=== PATIENT | female | born 1955 | race Caucasian/White ===

== ENCOUNTER 2021-10-20 20:22 | Observation (INO) ==
[2021-10-20] MEDS ORDERED: ONDANSETRON INJ 2 MG/ML 2 ML VIAL IV STA (21:09)
[2021-10-20] MEDS ORDERED: MoRPHine SULFATE 4 MG/ML 1 ML CARP\\VIAL IV STA (21:09)
[2021-10-20] MEDS ORDERED: SODIUM CHLORIDE 0.9% 500 ML IV STA (21:09)
[2021-10-20] MEDS ORDERED: HYDROmorphone INJ 0.5 MG/0.5 ML SYR IV STA (21:28)
[2021-10-20] MEDS ORDERED: LABETALOL HCL IV 5 MG/ML 20ML IV STA (21:28)
--- NOTE | 2021-10-20 21:32 | Emergency Department Note ---
Impression & Plan Chest pain ADMIT ED Provider Note HPI: The patient is a 66-year-old female who presents the emergency department with chief complaint of mid abdominal pain. Patient states that she has had issues with abdominal pain throughout the day today although this just became rel atively severe over the past several hours. She complains of pain over the epigastric region and mid abdomen. Patient states she has had several episodes of vomiting. On arrival to the ED the patient is hypertensive, she is in no acute distress on my initial evaluation. She is saturating well on room air. ROS: -GI: Abdominal pain *10 point review systems was conducted and is otherwise negative unless stated above *Outpatient medications and allergy history reviewed PE: General: Alert, NAD HEENT: Normocephalic, atraumatic Eyes: Extraocular eye movement is intact, no scleral erythema Pulmonary: Clear to auscultation bilaterally, no wheezing Cardio: Regular rate and rhythm GI: Abdomen is soft, moderate pain over the mid abdomen to palpation without guarding or rigidity : No suprapubic tenderness MSK: No evidence of trauma or malformation of the extremities, no edema Skin: No evidence of rash Neuro: Alert, no focal deficits Psychiatric: Cooperative lawyer real estate: - An order was placed for continuous cardiac monitoring - Patient was noted to be in sinus rhythm with rate of 63 EKG: Rate: 48 Rhythm: Sinus bradycardia Intervals: Within normal limits Time: 2135 ST changes: No ST elevation Medical Decision Making: Patient presented to the emergency department the chief complaint of abdominal pain, on my initial assessment the patient was having some moderate discomfort however shortly thereafter on reassessment she began to develop some very intense pain that was causing her to be writhing in the bed, at this point I did have concern for aortic dissection therefore I contacted CT and placed orders for CT angiography of the chest as well as of the abdomen pelvis. These were performed and show no evidence of aortic dissection, no evidence of bowel obs truction, no evidence of any acute surgical pathology. Patient's lab work is generally unremarkable, troponin is negative x1, I do not see any acute ischemic changes on her EKG. Lipase is within normal limits. Patient was given IV morphine, IV Zofran, IV fluids, IV Dilaudid. My reassessment she is resting comfortably and states that her pain is "much improved". Patient's pain has been epigastric in nature and somewhat substernal in nature in the lower portion of the chest. She does have multiple risk factors for ACS including hypertension, hyperlipidemia, age, and strong family history. Discussed all the above findings with the patient and her at the bedside who is a physician, they state their preference for admission for ACS rule out which I believe is reasonable. I discussed all the above with the on-call hospitalist for [facility], Dr. Li, and the patient was admitted in stable condition for further care. Diagnosis: 1. Nonspecific chest pain 2. Abdominal pain 3. Nausea and vomiting Disposition: Admission Emile Preciado DO Emergency Medicine Past Med/Surg History Medical History (Updated 10/20/21 @ 23:49 by Emile Preciado DO) Brain tumor High cholesterol Hypothyroidism Surgical History (Updated 07/25/21 @ 08:37 by Debi Sultana LPN) H/O bilateral breast reduction surgery H/O craniotomy H/O hand surgery H/O laparoscopy H/O thyroidectomy H/O: hysterectomy History of laparotomy Hx of appendectomy Family History (Updated 07/25/21 @ 08:38 by Debi Sultana LPN) Mother Myocardial infarction Denies family history of Ovarian cancer Prostate cancer Breast cancer Colorectal cancer Social History (Updated 07/25/21 @ 08:40 by Debi Sultana LPN) Smoking Status: Never smoker Second Hand Exposure: Yes; Hx Alcohol Use: Yes Hx Substance Use: No Preferred Language: Serbian marital status: Current Living Situation: Spouse current occupational status: employed How many Children do You have: 0 Feels Safe at Home: Yes Childhood Exposure to Second-Hand Smoke: Yes caffeine: Yes Dental Care, Regularly: Yes Physical Activity Frequency: 3-4 Times per Week Seatbelt Use: always Sunscreen Use: Yes Allergies Allergies Allergy/AdvReac Type Severity Reaction Status Date / Time Sulfa (Sulfonamide Allergy Verified 08/30/21 10:27 Antibiotics) Home Meds Home Medications Medication Instructions Recorded Confirmed levothyroxine 125 mcg tablet 125 mcg PO DAILY 07/25/21 08/30/21 (Synthroid) rabeprazole [AcipHex] PO 07/25/21 08/30/21 rosuvastatin 10 mg tablet (Crestor) 10 mg PO DAILY 07/25/21 08/30/21 trazodone 50 mg tablet 50 mg PO DAILY 07/25/21 08/30/21 Previous Rx's Medication Instructions Recorded clobetasol 0.05 % topical cream 1 applic TOPICAL DAILY #30 g 07/25/21 Results & Data (ED) Vital Signs Vital Signs - 24 hr 10/20/21 20:32 10/20/21 22:17 Temperature 36.0 C L Temperature Source Temporal Artery Scan Pulse Rate 74 Respiratory Rate 18 Blood Pressure 168/113 H Blood Pressure Mean 131 Blood Pressure Position Sitting Pulse Oximetry 97 92 Oxygen Delivery Method Room Air Room Air Sepsis Recent Fever Within 48 Hours No Sepsis New/Unexplained Change in Mental Status N/A Sepsis Action Taken by Nursing No Action Required Laboratory Data Result diagrams: 10/20/21 21:23 10/20/21 21:23 Lab Results 10/20/21 10/20/21 10/20/21 Range/Units 21:23 21:23 22:28 WBC 9.15 (4.8-10.8) K/uL RBC 4.56 (4.2-5.4) M/uL Hgb 14.1 (12.0-16.0) g/dL Hct 42.2 (37-47) % MCV 92.5 (80-100) fL MCH 30.9 (25-34) pg MCHC 33.4 (32-36) g/dL RDW Std Deviation 47.7 H (36.4-46.3) fL RDW Coeff of Corrina 14.1 (11.5-14.5) % Plt Count 296 (130-400) K/uL MPV 9.9 (7.4-10.4) fL Immature Gran % (Auto) 0.2 % Neut % (Auto) 75.1 % Lymph % (Auto) 17.8 % [place] % (Auto) 6.4 % Eos % (Auto) 0.3 % Baso % (Auto) 0.2 % Neut # (Auto) 6.86 H (1.4-6.5) K/uL Lymph # (Auto) 1.63 (1.2-3.4) K/uL [place] # (Auto) 0.59 (0.11-0.59) K/uL Eos # (Auto) 0.03 (0-0.5) K/uL Baso # (Auto) 0.02 (0-0.2) K/uL Immature Gran # (Auto) 0.02 (0.00-0.02) K/uL Sodium 139 (136-145) mmol/L Potassium 3.7 (3.5-5.1) mmol/L Chloride 103 (98-107) mmol/L Carbon Dioxide 26 (21-32) mmol/L Anion Gap 10 (3-11) BUN 15 (6-23) mg/dl Creatinine 0.73 (0.6-1.2) mg/dl Est Cr Clr Drug Dosing 68.8 ml/min Est GFR ( Amer) 100.9 ml/min Est GFR (Non-Af Amer) 87.0 ml/min BUN/Creatinine Ratio 20.5 H (10-20) Glucose 105 H (70-99(Fasting)) mg/dl Calcium 9.6 (8.5-10.1) mg/dl Total Bilirubin 0.4 (0.2-1.0) mg/dl AST 17 (13-39) U/L ALT 21 (7-52) U/L Alkaline Phosphatase 84 (34-104) U/L Troponin I < 0.03 (0-0.04) ng/ml Total Protein 6.9 (6.0-8.3) gm/dl Albumin 4.5 (3.4-5.0) gm/dl Globulin 2.4 L (2.5-4.0) gm/dl Albumin/Globulin Ratio 1.9 (0.9-2) Lipase 28 (11-82) U/L Urine Color Yellow Urine Appearance Clear (Clear) Urine pH 7.5 (4.5-7.5) Ur Specific [place] 1.029 (1.000-1.030) Urine Protein Negative (Negative) Urine Glucose (UA) Negative (Negative) Urine Ketones Negative (Negative) Urine Blood Negative (Negative) Urine Nitrite Negative (Negative) Urine Bilirubin Negative (Negative) Urine Urobilinogen Negative (Negative) Ur Leukocyte Esterase Negative (Negative) SARS-CoV-2, RNA, NAAT (NEGATIVE) 10/20/21 Range/Units 22:46 WBC (4.8-10.8) K/uL RBC (4.2-5.4) M/uL Hgb (12.0-16.0) g/dL Hct (37-47) % MCV (80-100) fL MCH (25-34) pg MCHC (32-36) g/dL RDW Std Deviation (36.4-46.3) fL RDW Coeff of Corrina (11.5-14.5) % Plt Count (130-400) K/uL MPV (7.4-10.4) fL Immature Gran % (Auto) % Neut % (Auto) % Lymph % (Auto) % [place] % (Auto) % Eos % (Auto) % Baso % (Auto) % Neut # (Auto) (1.4-6.5) K/uL Lymph # (Auto) (1.2-3.4) K/uL [place] # (Auto) (0.11-0.59) K/uL Eos # (Auto) (0-0.5) K/uL Baso # (Auto) (0-0.2) K/uL Immature Gran # (Auto) (0.00-0.02) K/uL Sodium (136-145) mmol/L Potassium (3.5-5.1) mmol/L Chloride (98-107) mmol/L Carbon Dioxide (21-32) mmol/L Anion Gap (3-11) BUN (6-23) mg/dl Creatinine (0.6-1.2) mg/dl Est Cr Clr Drug Dosing ml/min Est GFR ( Amer) ml/min Est GFR (Non-Af Amer) ml/min BUN/Creatinine Ratio (10-20) Glucose (70-99(Fasting)) mg/dl Calcium (8.5-10.1) mg/dl Total Bilirubin (0.2-1.0) mg/dl AST (13-39) U/L ALT (7-52) U/L Alkaline Phosphatase (34-104) U/L Troponin I (0-0.04) ng/ml Total Protein (6.0-8.3) gm/dl Albumin (3.4-5.0) gm/dl Globulin (2.5-4.0) gm/dl Albumin/Globulin Ratio (0.9-2) Lipase (11-82) U/L Urine Color Urine Appearance (Clear) Urine pH (4.5-7.5) Ur Specific [place] (1.000-1.030) Urine Protein (Negative) Urine Glucose (UA) (Negative) Urine Ketones (Negative) Urine Blood (Negative) Urine Nitrite (Negative) Urine Bilirubin (Negative) Urine Urobilinogen (Negative) Ur Leukocyte Esterase (Negative) SARS-CoV-2, RNA, NAAT NEGATIVE (NEGATIVE) Administered Medications Discontinued Medications Hydromorphone HCl (Hydromorphone Inj 0.5 Mg/0.5 Ml Syr) 0.5 mg IV NOW STA Stop: 10/20/21 21:29 Last Admin: 10/20/21 21:44 Dose: 0.5 mg Documented by: [id number] Sodium Chloride (Nss) 500 mls @ 999 mls/hr IV .Q31M STA Stop: 10/20/21 21:39 Last Infusion: 10/20/21 22:45 Dose: 0 mls/hr Documented by: [id number] Admin: 10/20/21 21:44 Dose: 999 mls/hr Documented by: [id number] Ioversol (Optiray 320 125ml) 118 ml IV ONCE ONE Stop: 10/20/21 21:50 Last Admin: 10/20/21 21:52 Dose: 118 ml Documented by: [id number] Labetalol HCl (Labetalol Hcl Iv 5 Mg/Ml 20ml) 10 mg IV NOW STA Stop: 10/20/21 21:29 Last Admin: 10/20/21 22:08 Dose: 10 mg Documented by: [id number] Cosigned by: [id number] Morphine Sulfate (Morphine Sulfate 4 Mg/Ml 1 Ml Carp\\Vial) 4 mg IV NOW STA Stop: 10/20/21 21:10 Last Admin: 10/20/21 21:44 Dose: 4 mg Documented by: [id number] Ondansetron HCl (Ondansetron Inj 2 Mg/Ml 2 Ml Vial) 4 mg IV NOW STA Stop: 10/20/21 21:10 Last Admin: 10/20/21 21:44 Dose: 4 mg Documented by: [id number] Imaging Data Radiologist's Impression: Abdomen/Pelvis CTA 10/20/21 21:27 CHEST CTA for AORTIC DISSECTION, ABDOMEN AND PELVIS CTA CT DOSE: 865.17 mGy.cm HISTORY: ripping chest pain. Generalized abdominal pain. Lower abdominal pain. Vomiting. Assess for an aortic dissection. TECHNIQUE: Multiaxial CT images of the chest, abdomen, and pelvis were performed both before and after the intravenous administration of contrast to evaluate the aorta. Maximal intensity projection images were also obtained. A dose lowering technique was utilized adhering to the principles of ALARA. COMPARISON STUDY: None. FINDINGS: Chest CTA: Noncontrast imaging through the chest shows no evidence for an intramural hematoma within the thoracic aorta. Mild calcified plaque within the normal caliber thoracic aorta. The heart is mildly enlarged. No pleural or pericardial effusions. No evidence for an aortic dissection. The central pulmonary arteries are patent. Mild calcified plaque within the coronary arteries. Normal caliber esophagus. No mediastinal or hilar lymphadenopathy. No fractures within the visualized osseous structures. No pneumothorax. The central airways are patent. Mild dependent changes seen at the lung bases. Otherwise, no focal lung consolidations to suggest pneumonia. Abdomen/pelvis CTA: No pneumoperitoneum. No pneumatosis. No fractures within the visualized osseous structures. There is no for vertebral body hemangioma. The gallbladder, spleen, adrenal glands, pancreas, and right kidney are unremarkable. There is a 1.2 cm hypodense lesion within the left kidney. This favors a cyst. No hydronephrosis. No retroperitoneal lymphadenopathy. Moderate calcified plaque within the normal caliber abdominal aorta. No evidence for an aortic dissection. The celiac, superior mesenteric, renal, inferior mesenteric, and common iliac arteries are patent. The bilateral external iliac arteries are also patent. Normal bladder. Prior hysterectomy. No pelvic free fluid or pelvic lymphadenopathy. Colonic diverticulosis. No evidence for acute diverticulitis. No bowel wall thickening or obstruction. The appendix is surgically absent. Atrophic left hepatic lobe. There is a 1 cm hypodense lesion within the posterior segment of the right hepatic lobe. This is difficult to characterize on this study but favors a cyst. 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 There is an indeterminate 1 cm nodule within the mid mesentery on image 172.. IMPRESSION: 1. No evidence for an aortic dissection. 2. The central pulmonary arteries appear patent. 3. No focal lung consolidations to suggest pneumonia. 4. No bowel wall thickening or obstruction. 5. Colonic diverticulosis. No evidence for acute diverticulitis. 6. Prior appendectomy. 7. 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 8. There is an indeterminate 1 cm nodule within the mid mesentery. This could represent a lymph node or small bowel diverticulum. 6 month abdomen and pelvis CT follow-up with intravenous and oral contrast is recommended to ensure stability. 9. Additional findings as described above. ACT 112: Positive. There are findings on this exam that require communication between the performing entity and the patient following Patient Test Result Information Act ([place] Act 112) guidelines. Electronically signed by: Radames Kaye M.D. 10/20/2021 10:18 PM Chest CTA 10/20/21 21:27 CHEST CTA for AORTIC DISSECTION, ABDOMEN AND PELVIS CTA CT DOSE: 865.17 mGy.cm HISTORY: ripping chest pain. Generalized abdominal pain. Lower abdominal pain. Vomiting. Assess for an aortic dissection. TECHNIQUE: Multiaxial CT images of the chest, abdomen, and pelvis were performed both before and after the intravenous administration of contrast to evaluate the aorta. Maximal intensity projection images were also obtained. A dose lowering technique was utilized adhering to the principles of ALARA. COMPARISON STUDY: None. FINDINGS: Chest CTA: Noncontrast imaging through the chest shows no evidence for an intramural hematoma within the thoracic aorta. Mild calcified plaque within the normal caliber thoracic aorta. The heart is mildly enlarged. No pleural or pericardial effusions. No evidence for an aortic dissection. The central pulmonary arteries are patent. Mild calcified plaque within the coronary arteries. Normal caliber esophagus. No mediastinal or hilar lymphadenopathy. No fractures within the visualized osseous structures. No pneumothorax. The central airways are patent. Mild dependent changes seen at the lung bases. Otherwise, no focal lung consolidations to suggest pneumonia. Abdomen/pelvis CTA: No pneumoperitoneum. No pneumatosis. No fractures within the visualized osseous structures. There is no for vertebral body hemangioma. The gallbladder, spleen, adrenal glands, pancreas, and right kidney are unremarkable. There is a 1.2 cm hypodense lesion within the left kidney. This favors a cyst. No hydronephrosis. No retroperitoneal lymphadenopathy. Moderate calcified plaque within the normal caliber abdominal aorta. No evidence for an aortic dissection. The celiac, superior mesenteric, renal, inferior mesenteric, and common iliac arteries are patent. The bilateral external iliac arteries are also patent. Normal bladder. Prior hysterectomy. No pelvic free fluid or pelvic lymphadenopathy. Colonic diverticulosis. No evidence for acute diverticulitis. No bowel wall thickening or obstruction. The appendix is surgically absent. Atrophic left hepatic lobe. There is a 1 cm hypodense lesion within the posterior segment of the right hepatic lobe. This is difficult to characterize on this study but favors a cyst. 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 There is an indeterminate 1 cm nodule within the mid mesentery on image 172.. IMPRESSION: 1. No evidence for an aortic dissection. 2. The central pulmonary arteries appear patent. 3. No focal lung consolidations to suggest pneumonia. 4. No bowel wall thickening or obstruction. 5. Colonic diverticulosis. No evidence for acute diverticulitis. 6. Prior appendectomy. 7. 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 8. There is an indeterminate 1 cm nodule within the mid mesentery. This could represent a lymph node or small bowel diverticulum. 6 month abdomen and pelvis CT follow-up with intravenous and oral contrast is recommended to ensure stability. 9. Additional findings as described above. ACT 112: Positive. There are findings on this exam that require communication between the performing entity and the patient following Patient Test Result Information Act ([place] Act 112) guidelines. Electronically signed by: Radames Kaye M.D. 10/20/2021 10:18 PM Discharge Plan Visit Data Chief Complaint: GI Assessment Stated Complaint: ABD PAIN,NAUSEA ED Provider: Emile Preciado Discharge Problem: Chest pain Forms Stand Alone Forms: [employer] Prescriptions Prescriptions: No Action levothyroxine [Synthroid] 125 mcg tablet 125 mcg PO DAILY RF: 0 trazodone 50 mg tablet 50 mg PO DAILY RF: 0 rosuvastatin [Crestor] 10 mg tablet 10 mg PO DAILY RF: 0 rabeprazole [AcipHex] PO RF: 0 clobetasol 0.05 % cream 1 applic topical DAILY Qty: 30 RF: 3 Referrals Referrals: Shawn Puente MD [Primary Care Provider] - Discharge Problem: Chest pain Qualifiers: Chest pain type: unspecified Qualified Code(s): R07.9 - Chest pain, unspecified
[2021-10-20 21:37] LABS: Basophils # (auto) 0.02 K/uL (0-0.2); Basophils % (auto) 0.2 %; Eosinophils # (auto) 0.03 K/uL (0-0.5); Eosinophils % (auto) 0.3 %; Hematocrit (blood only) 42.2 % (37-47); Hemoglobin 14.1 g/dL (12.0-16.0); Immature Granulocytes # (auto) 0.02 K/uL (0.00-0.02); Immature Granulocytes % (auto) 0.2 %; Lymphocytes # (auto) 1.63 K/uL (1.2-3.4); Lymphocytes % (auto) 17.8 %; Mean Corpuscular Hemoglobin 30.9 pg (25-34); Mean Corpuscular Hgb Conc 33.4 g/dL (32-36); Mean Corpuscular Volume 92.5 fL (80-100); Mean Platelet Volume 9.9 fL (7.4-10.4); Monocytes # (auto) 0.59 K/uL (0.11-0.59); Monocytes % (auto) 6.4 %; Neutrophils # (auto) 6.86 K/uL (1.4-6.5); Neutrophils % (auto) 75.1 %; Platelet Count 296 K/uL (130-400); RDW Coefficient of Variation 14.1 % (11.5-14.5); RDW Standard Deviation 47.7 fL (36.4-46.3); Red Blood Count 4.56 M/uL (4.2-5.4); White Blood Count 9.15 K/uL (4.8-10.8)
[2021-10-20] MEDS ORDERED: OPTIRAY 320 125ml IV ONE (21:49)
[2021-10-20 21:59] LABS: Alanine Aminotransferase 21 U/L (7-52); Albumin Globulin Ratio 1.9 (0.9-2); Albumin Level 4.5 gm/dl (3.4-5.0); Alkaline Phosphatase 84 U/L (34-104); Anion Gap 10 (3-11); Aspartate Aminotransferase 17 U/L (13-39); BUN Creatinine Ratio 20.5 (10-20); Bilirubin,Total 0.4 mg/dl (0.2-1.0); Blood Urea Nitrogen 15 mg/dl (6-23); Calcium 9.6 mg/dl (8.5-10.1); Carbon Dioxide 26 mmol/L (21-32); Chloride 103 mmol/L (98-107); Creatinine Clr Calc Pharmacy 68.8 ml/min; Est GFR (African American) 100.9 ml/min; Globulin 2.4 gm/dl (2.5-4.0); Glucose 105 mg/dl (70-99(Fasting)); Lipase 28 U/L (11-82); Potassium 3.7 mmol/L (3.5-5.1); Sodium 139 mmol/L (136-145); Total Protein 6.9 gm/dl (6.0-8.3)
[2021-10-20 22:00] LABS: Troponin I < 0.03 ng/ml (0-0.04)
--- NOTE | 2021-10-20 22:20 | CT Scan Report ---
CHEST CTA for AORTIC DISSECTION, ABDOMEN AND PELVIS CTA CT DOSE: 865.17 mGy.cm HISTORY: ripping chest pain. Generalized abdominal pain. Lower abdominal pain. Vomiting. Assess for a n aortic dissection. TECHNIQUE: Multiaxial CT images of the chest, abdomen, and pelvis were performed both before and afte r the intravenous administration of contrast to evaluate the aorta. Maximal intensity projection imag es were also obtained. A dose lowering technique was utilized adhering to the principles of ALARA. COMPARISON STUDY: None. FINDINGS: Chest CTA: Noncontrast imaging through the chest shows no evidence for an intramural hematoma within the thoracic aorta. Mild calcified plaque within the normal caliber thoracic aorta. The heart is mild ly enlarged. No pleural or pericardial effusions. No evidence for an aortic dissection. The central p ulmonary arteries are patent. Mild calcified plaque within the coronary arteries. Normal caliber esop hagus. No mediastinal or hilar lymphadenopathy. No fractures within the visualized osseous structures . No pneumothorax. The central airways are patent. Mild dependent changes seen at the lung bases. Oth erwise, no focal lung consolidations to suggest pneumonia. Abdomen/pelvis CTA: No pneumoperitoneum. No pneumatosis. No fractures within the visualized osseous s tructures. There is no for vertebral body hemangioma. The gallbladder, spleen, adrenal glands, pancre as, and right kidney are unremarkable. There is a 1.2 cm hypodense lesion within the left kidney. Thi s favors a cyst. No hydronephrosis. No retroperitoneal lymphadenopathy. Moderate calcified plaque wit hin the normal caliber abdominal aorta. No evidence for an aortic dissection. The celiac, superior me senteric, renal, inferior mesenteric, and common iliac arteries are patent. The bilateral external il iac arteries are also patent. Normal bladder. Prior hysterectomy. No pelvic free fluid or pelvic lymp hadenopathy. Colonic diverticulosis. No evidence for acute diverticulitis. No bowel wall thickening o r obstruction. The appendix is surgically absent. Atrophic left hepatic lobe. There is a 1 cm hypoden se lesion within the posterior segment of the right hepatic lobe. This is difficult to characterize o n this study but favors a cyst. 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 me asuring 1.6 cm. There is an indeterminate 1 cm nodule within the mid mesentery on image 172.. IMPRESSION: 1. No evidence for an aortic dissection. 2. The central pulmonary arteries appear patent. 3. No focal lung consolidations to suggest pneumonia. 4. No bowel wall thickening or obstruction. 5. Colonic diverticulosis. No evidence for acute diverticulitis. 6. Prior appendectomy. 7. 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 8. There is an indeterminate 1 cm nodule within the mid mesentery. This could represent a lymph node or small bowel diverticulum. 6 month abdomen and pelvis CT follow-up with intravenous and oral contra st is recommended to ensure stability. 9. Additional findings as described above. ACT 112: Positive. There are findings on this exam that require communication between the performing entity and the patient following Patient Test Result Information Act ([place] Act 112) guidelines. Electronically signed by: Radames Kaye M.D. 10/20/2021 10:18 PM
[2021-10-20 22:59] LABS: Appearance Urine Clear (Clear); Bilirubin Urine Negative (Negative); Blood Urine Negative (Negative); Color Urine Yellow; Glucose Urine UA Negative (Negative); Ketones Urine Negative (Negative); Leukocyte Esterase Urine Negative (Negative); Nitrite Urine Negative (Negative); Protein Urine Negative (Negative); Specific Gravity Urine 1.029 (1.000-1.030); Urobilinogen Urine Negative (Negative); pH Urine 7.5 (4.5-7.5)
[2021-10-21] MEDS ORDERED: MoRPHine SULFATE 4 MG/ML 1 ML CARP\\VIAL ONE (00:54)
[2021-10-21] MEDS ORDERED: MoRPHine SULFATE 4 MG/ML 1 ML CARP\\VIAL IV STA (01:01)
[2021-10-21 01:17] LABS: Partial Thromboplastin Time 25.3 Seconds (21.0-31.0)
[2021-10-21 01:29] LABS: Magnesium 1.8 mg/dl (1.7-2.4); Troponin I < 0.03 ng/ml (0-0.04)
--- NOTE | 2021-10-21 01:33 | History & Physical Report ---
Date of Service October 21, 2021 Assessment & Plan (1) Abdominal pain: Plan: Possible viral gastritis Doubt anginal equivalent given prominent GI complaints Situational hypertension Possible chronic BP elevation given mild cardiomegaly on imaging hx brain hemangioblastoma status post surgery (2019), history pituitary adenoma/cerebral meningioma as per records papillary thyroid cancer status post surgery postsurgical hypothyroidism, euthyroid as of recent outpatient TSH hyperlipidemia on statin Rx hx GERD/microscopic colitis Incidental finding of mesenteric nodule on CT OBS Medical telemetry given BP elevation Supportive management for possible viral GI illness Trend troponin TTE given BP elevation and patient/family concerns about ischemic heart disease with patient strong family history Analgesia Monitor BP, initiate lisinopril if with persistent elevation Outpatient 6 month follow-up imaging for mesenteric nodule as recommended DVT prophylaxis per Lovenox subcu Full code Patient requesting updates from providers. Dr. Aldair Pinto, contact #[phone]. Text document was generated using [employer] voice recognition software. It may contain grammatical or spelling errors. Kindly contact undersigned for clarification of any documentation item in question. History of Present Illness Chief Complaint: Abdominal pain, vomiting Primary Care Provider: Shawn Puente MD History obtained from patient, family, and records. Medical history significant for brain hemangioblastoma status post surgery (2019), history pituitary adenoma/cerebral meningioma as per records, papillary thyroid cancer status post surgery, postsurgical hypothyroidism, hyperlipidemia, GERD, microscopic colitis, mood disorder. 1 day history of mid abdominal pain followed by emesis symptoms. No change in bowel habits. No fever, no chills. No known sick contacts. No chest pain, no S OB. Patient and worried about possible cardiac etiology for GI symptoms given strong family of heart disease. Medical History as above Surgical History : Ex lap, breast reduction surgery, brain tumor removal, thyroidectomy, MARLEE, multiple diagnostic laparoscopies for infertility work-up Family History : Heart disease, lung cancer Personal/Social history : Non-smoker, occasional EtOH intake, [employer] Allergies Allergy/AdvReac Type Severity Reaction Status Date / Time cefoxitin [From Mefoxin] Allergy Rash Unverified 10/21/21 00:08 Sulfa (Sulfonamide Allergy Verified 10/21/21 00:07 Antibiotics) Home Medications Medication Instructions Recorded Confirmed Type trazodone 50 mg tablet 50 mg PO HS 07/25/21 10/20/21 History levothyroxine 125 mcg tablet 125 mcg PO DAILY 10/20/21 10/20/21 History melatonin 10 mg tablet 10 mg PO HS PRN 10/20/21 10/21/21 History rabeprazole 20 mg tablet,delayed 20 mg PO DAILY 10/20/21 10/20/21 History release (AcipHex) acetaminophen 650 mg 1,300 mg PO Q12H PRN 10/21/21 10/21/21 History tablet,extended release biotin 5 mg tablet 0 mg PO DAILY 10/21/21 10/21/21 History budesonide 3 mg 9 mg PO DAILY 10/21/21 10/21/21 History capsule,delayed,extended release calcium carbonate 600 mg-vitamin 1 cap PO QAM 10/21/21 10/21/21 History D3 5 mcg (200 unit) capsule (Calcium 600 + D(3)) cyanocobalamin (vitamin B-12) 5,000 mcg PO DAILY 10/21/21 10/21/21 History 5,000 mcg capsule fluticasone propionate 50 2 spray INTRANASAL DAILY PRN 10/21/21 10/21/21 History mcg/actuation nasal spray,suspension multivitamin 1 tab PO DAILY 10/21/21 10/21/21 History rosuvastatin 5 mg tablet (Crestor) 5 mg PO DAILY 10/21/21 10/21/21 History vit C-vit P-qzvocy-ckez ox-lutein 1 cap PO BID 10/21/21 10/21/21 History 226 mg-200 unit-5 mg-0.8 mg capsule (PreserVision Lutein) Past Med/Surg History Medical History (Updated 10/21/21 @ 04:49 by Ander Kinsey MD) Brain tumor High cholesterol Hypothyroidism Surgical History (Updated 07/25/21 @ 08:37 by Debi Sultana LPN) H/O bilateral breast reduction surgery H/O craniotomy H/O hand surgery H/O laparoscopy H/O thyroidectomy H/O: hysterectomy History of laparotomy Hx of appendectomy Family History (Updated 07/25/21 @ 08:38 by Debi Sultana LPN) Mother Myocardial infarction Denies family history of Ovarian cancer Prostate cancer Breast cancer Colorectal cancer Social History (Updated 07/25/21 @ 08:40 by Debi Sultana LPN) Smoking Status: Never smoker Second Hand Exposure: Yes; Hx Alcohol Use: Yes Hx Substance Use: No Preferred Language: Slovak marital status: Current Living Situation: Spouse current occupational status: employed How many Children do You have: 0 Feels Safe at Home: Yes Childhood Exposure to Second-Hand Smoke: Yes caffeine: Yes Dental Care, Regularly: Yes Physical Activity Frequency: 3-4 Times per Week Seatbelt Use: always Sunscreen Use: Yes Review of Systems Review of Systems: As per HPI, all 10 systems reviewed, all other ROS negative Physical Exam Physical Exam: GENERAL: Slightly uncomfortable, pleasant, no respiratory distress SKIN: Normal color, warm HEENT: Bespectacled, [place] palpebral conjunctivae, no ptosis, dry buccal mucosa NECK : Supple, no tenderness CHEST : CTA, no tenderness HEART : RRR, no obvious murmurs ABDOMEN: Some distention, nontender EXTREMITIES : No LE swelling/tenderness, no other conspicuous deformities noted NEUROLOGIC : Coherent, no facial asymmetry, no other gross focality Results & Data Results & Data ([facility]) Vital Signs (Past 12 Hours) Vital Signs Temp Pulse Pulse Resp BP BP Pulse Ox 10/21/21 00:20 61 18 166/92 H 97 10/20/21 22:17 92 10/20/21 20:32 36.0 C L 74 18 168/113 H 97 Laboratory Results Laboratory Results WBC 9.15 K/uL (4.8-10.8) 10/20/21 21: RBC 4.56 M/uL (4.2-5.4) 10/20/21 21: Hgb 14.1 g/dL (12.0-16.0) 10/20/21 21: Hct 42.2 % (37-47) 10/20/21 21: MCV 92.5 fL (80-100) 10/20/21 21: MCH 30.9 pg (25-34) 10/20/21 21: MCHC 33.4 g/dL (32-36) 10/20/21: RDW Std Deviation 47.7 fL (36.4-46.3) H 10/20/21 21: RDW Coeff of [place]rina 14.1 % (11.5-14.5) 10/20/21 21: Plt Count 296 K/uL (130-400) 10/20/21: MPV 9.9 fL (7.4-10.4) 10/20/21: Immature Gran % (Auto) 0.2 % 10/20/21: Neut % (Auto) 75.1 % 10/20/21: Lymph % (Auto) 17.8 % 10/20/21: [place] % (Auto) 6.4 % 10/20/21: Eos % (Auto) 0.3 % 10/20/21: Baso % (Auto) 0.2 % 10/20/21: Neut # (Auto) 6.86 K/uL (1.4-6.5) H 10/20/21: Lymph # (Auto) 1.63 K/uL (1.2-3.4) 10/20/21: [place] # (Auto) 0.59 K/uL (0.11-0.59) 10/20/21: Eos # (Auto) 0.03 K/uL (0-0.5) 10/20/21: Baso # (Auto) 0.02 K/uL (0-0.2) 10/20/21: Immature Gran # (Auto) 0.02 K/uL (0.00-0.02) 10/20/21 APTT 25.3 Seconds (21.0-31.0) 10/21/21 00:50 PTT Ratio 1.0 10/21/21 00:50 Sodium 139 mmol/L (136-145) 10/20/21: Potassium 3.7 mmol/L (3.5-5.1) 10/20/21: Chloride 103 mmol/L (98-107) 10/20/21: Carbon Dioxide 26 mmol/L (21-32) 10/20/21: Anion Gap 10 (3-11) 10/20/21: BUN 15 mg/dl (6-23) 10/20/21: Creatinine 0.73 mg/dl (0.6-1.2) 10/20/21: Est Cr Clr Drug Dosing 68.8 ml/min 10/20/21: Est GFR ( Amer) 100.9 ml/min 10/20/21 21: Est GFR (Non-Af Amer) 87.0 ml/min 10/20/21 21: BUN/Creatinine Ratio 20.5 (10-20) H 10/20/21 21: Glucose 105 mg/dl (70-99(Fasting)) H 10/20/21 21: Calcium 9.6 mg/dl (8.5-10.1) 10/20/21: Magnesium 1.8 mg/dl (1.7-2.4) 10/21/21 00:50 Total Bilirubin 0.4 mg/dl (0.2-1.0) 10/20/21 21: AST 17 U/L (13-39) 10/20/21: ALT 21 U/L (7-52) 10/20/21: Alkaline Phosphatase 84 U/L (34-104) 10/20/21: Troponin I < 0.03 ng/ml (0-0.04) 10/21/21 00:50 Total Protein 6.9 gm/dl (6.0-8.3) 10/20/21: Albumin 4.5 gm/dl (3.4-5.0) 10/20/21: Globulin 2.4 gm/dl (2.5-4.0) L 10/20/21: Albumin/Globulin Ratio 1.9 (0.9-2) 10/20/21: Lipase 28 U/L (11-82) 10/20/21 21: Urine Color Yellow 10/20/21 22: Urine Appearance Clear (Clear) 10/20/21 22: Urine pH 7.5 (4.5-7.5) 10/20/21 22: Ur Specific [place] 1.029 (1.000-1.030) 10/20/21 22: Urine Protein Negative (Negative) 10/20/21 22: Urine Glucose (UA) Negative (Negative) 10/20/21 22: Urine Ketones Negative (Negative) 10/20/21 22: Urine Blood Negative (Negative) 10/20/21 22: Urine Nitrite Negative (Negative) 10/20/21 22: Urine Bilirubin Negative (Negative) 10/20/21 22:28 Urine Urobilinogen Negative (Negative) 10/20/21 22:28 Ur Leukocyte Esterase Negative (Negative) 10/20/21 22:28 SARS-CoV-2, RNA, NAAT NEGATIVE (NEGATIVE) 10/20/21 22:46 Impressions Abdomen/Pelvis CTA 10/20/21 21:27 CHEST CTA for AORTIC DISSECTION, ABDOMEN AND PELVIS CTA CT DOSE: 865.17 mGy.cm HISTORY: ripping chest pain. Generalized abdominal pain. Lower abdominal pain. Vomiting. Assess for an aortic dissection. TECHNIQUE: Multiaxial CT images of the chest, abdomen, and pelvis were performed both before and after the intravenous administration of contrast to evaluate the aorta. Maximal intensity projection images were also obtained. A dose lowering technique was utilized adhering to the principles of ALARA. COMPARISON STUDY: None. FINDINGS: Chest CTA: Noncontrast imaging through the chest shows no evidence for an intramural hematoma within the thoracic aorta. Mild calcified plaque within the normal caliber thoracic aorta. The heart is mildly enlarged. No pleural or pericardial effusions. No evidence for an aortic dissection. The central pulmonary arteries are patent. Mild calcified plaque within the coronary arteries. Normal caliber esophagus. No mediastinal or hilar lymphadenopathy. No fractures within the visualized osseous structures. No pneumothorax. The central airways are patent. Mild dependent changes seen at the lung bases. Otherwise, no focal lung consolidations to suggest pneumonia. Abdomen/pelvis CTA: No pneumoperitoneum. No pneumatosis. No fractures within the visualized osseous structures. There is no for vertebral body hemangioma. The gallbladder, spleen, adrenal glands, pancreas, and right kidney are unremarkable. There is a 1.2 cm hypodense lesion within the left kidney. This favors a cyst. No hydronephrosis. No retroperitoneal lymphadenopathy. Moderate calcified plaque within the normal caliber abdominal aorta. No evidence for an aortic dissection. The celiac, superior mesenteric, renal, inferior mesenteric, and common iliac arteries are patent. The bilateral external iliac arteries are also patent. Normal bladder. Prior hysterectomy. No pelvic free fluid or pelvic lymphadenopathy. Colonic diverticulosis. No evidence for acute diverticulitis. No bowel wall thickening or obstruction. The appendix is surgically absent. Atrophic left hepatic lobe. There is a 1 cm hypodense lesion within the posterior segment of the right hepatic lobe. This is difficult to characterize on this study but favors a cyst. 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 There is an indeterminate 1 cm nodule within the mid mesentery on image 172.. IMPRESSION: 1. No evidence for an aortic dissection. 2. The central pulmonary arteries appear patent. 3. No focal lung consolidations to suggest pneumonia. 4. No bowel wall thickening or obstruction. 5. Colonic diverticulosis. No evidence for acute diverticulitis. 6. Prior appendectomy. 7. 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 8. There is an indeterminate 1 cm nodule within the mid mesentery. This could represent a lymph node or small bowel diverticulum. 6 month abdomen and pelvis CT follow-up with intravenous and oral contrast is recommended to ensure stability. 9. Additional findings as described above. ACT 112: Positive. There are findings on this exam that require communication between the performing entity and the patient following Patient Test Result Information Act ([place] Act 112) guidelines. Electronically signed by: Radames Kaye M.D. 10/20/2021 10:18 PM Chest CTA 10/20/21 21:27 CHEST CTA for AORTIC DISSECTION, ABDOMEN AND PELVIS CTA CT DOSE: 865.17 mGy.cm HISTORY: ripping chest pain. Generalized abdominal pain. Lower abdominal pain. Vomiting. Assess for an aortic dissection. TECHNIQUE: Multiaxial CT images of the chest, abdomen, and pelvis were performed both before and after the intravenous administration of contrast to evaluate the aorta. Maximal intensity projection images were also obtained. A dose lowering technique was utilized adhering to the principles of ALARA. COMPARISON STUDY: None. FINDINGS: Chest CTA: Noncontrast imaging through the chest shows no evidence for an intramural hematoma within the thoracic aorta. Mild calcified plaque within the normal caliber thoracic aorta. The heart is mildly enlarged. No pleural or pericardial effusions. No evidence for an aortic dissection. The central pulmonary arteries are patent. Mild calcified plaque within the coronary arteries. Normal caliber esophagus. No mediastinal or hilar lymphadenopathy. No fractures within the visualized osseous structures. No pneumothorax. The central airways are patent. Mild dependent changes seen at the lung bases. Otherwise, no focal lung consolidations to suggest pneumonia. Abdomen/pelvis CTA: No pneumoperitoneum. No pneumatosis. No fractures within the visualized osseous structures. There is no for vertebral body hemangioma. The gallbladder, spleen, adrenal glands, pancreas, and right kidney are unremarkable. There is a 1.2 cm hypodense lesion within the left kidney. This favors a cyst. No hydronephrosis. No retroperitoneal lymphadenopathy. Moderate calcified plaque within the normal caliber abdominal aorta. No evidence for an aortic dissection. The celiac, superior mesenteric, renal, inferior mesenteric, and common iliac arteries are patent. The bilateral external iliac arteries are also patent. Normal bladder. Prior hysterectomy. No pelvic free fluid or pelvic lymphadenopathy. Colonic diverticulosis. No evidence for acute diverticulitis. No bowel wall thickening or obstruction. The appendix is surgically absent. Atrophic left hepatic lobe. There is a 1 cm hypodense lesion within the pos terior segment of the right hepatic lobe. This is difficult to characterize on this study but favors a cyst. 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 There is an indeterminate 1 cm nodule within the mid mesentery on image 172.. IMPRESSION: 1. No evidence for an aortic dissection. 2. The central pulmonary arteries appear patent. 3. No focal lung consolidations to suggest pneumonia. 4. No bowel wall thickening or obstruction. 5. Colonic diverticulosis. No evidence for acute diverticulitis. 6. Prior appendectomy. 7. 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 8. There is an indeterminate 1 cm nodule within the mid mesentery. This could represent a lymph node or small bowel diverticulum. 6 month abdomen and pelvis CT follow-up with intravenous and oral contrast is recommended to ensure stability. 9. Additional findings as described above. ACT 112: Positive. There are findings on this exam that require communication between the performing entity and the patient following Patient Test Result Information Act ([place] Act 112) guidelines. Electronically signed by: Radames Kaye M.D. 10/20/2021 10:18 PM Diagnostic Findings EKG as per my interpretation rate 50, sinus bradycardia, normal axis, no ischemia
[2021-10-21] MEDS ORDERED: ONDANSETRON INJ 2 MG/ML 2 ML VIAL IV STA (01:34)
[2021-10-21] MEDS ORDERED: MAGNESIUM SULFATE / D5W 1 GM/100 ML BAG IV STA (01:38)
[2021-10-21] MEDS ORDERED: LACTATED RINGER'S 1,000 ML IV ONE (01:39)
[2021-10-21] MEDS ORDERED: FLUTICASONE PROPIONATE NA SPR 16 GM BTL PRN (04:59)
[2021-10-21] MEDS ORDERED: traMADol HCL 50 MG TABLET PO PRN (04:59)
[2021-10-21] MEDS ORDERED: MoRPHine SULFATE 2 MG/ML CARP IV PRN (04:59)
[2021-10-21] MEDS ORDERED: ACETAMINOPHEN 325 MG TAB PO PRN (04:59)
[2021-10-21] MEDS ORDERED: PROMETHAZINE HCL 12.5 MG in SODIUM CHLORIDE 0.9% 50 ML IV PRN (04:59)
[2021-10-21] MEDS ORDERED: MELATONIN 3 MG TAB PO PRN (05:03)
[2021-10-21 05:55] LABS: Partial Thromboplastin Ratio 0.9; Partial Thromboplastin Time 24.8 Seconds (21.0-31.0)
[2021-10-21 06:00] LABS: Basophils # (auto) 0.02 K/uL (0-0.2); Basophils % (auto) 0.2 %; Eosinophils # (auto) 0.01 K/uL (0-0.5); Eosinophils % (auto) 0.1 %; Hematocrit (blood only) 39.5 % (37-47); Hemoglobin 12.8 g/dL (12.0-16.0); Immature Granulocytes # (auto) 0.01 K/uL (0.00-0.02); Immature Granulocytes % (auto) 0.1 %; Lymphocytes # (auto) 1.12 K/uL (1.2-3.4); Lymphocytes % (auto) 12.3 %; Mean Corpuscular Hemoglobin 30.5 pg (25-34); Mean Corpuscular Hgb Conc 32.4 g/dL (32-36); Mean Corpuscular Volume 94.3 fL (80-100); Mean Platelet Volume 10.1 fL (7.4-10.4); Monocytes # (auto) 0.64 K/uL (0.11-0.59); Neutrophils # (auto) 7.28 K/uL (1.4-6.5); Neutrophils % (auto) 80.3 %; Platelet Count 287 K/uL (130-400); RDW Coefficient of Variation 14.2 % (11.5-14.5); RDW Standard Deviation 48.4 fL (36.4-46.3); Red Blood Count 4.19 M/uL (4.2-5.4); White Blood Count 9.08 K/uL (4.8-10.8)
[2021-10-21 06:08] LABS: Troponin I < 0.03 ng/ml (0-0.04)
[2021-10-21 06:10] LABS: Alanine Aminotransferase 17 U/L (7-52); Albumin Level 3.9 gm/dl (3.4-5.0); Alkaline Phosphatase 70 U/L (34-104); Anion Gap 6 (3-11); Aspartate Aminotransferase 14 U/L (13-39); BUN Creatinine Ratio 15.9 (10-20); Bilirubin,Total 0.5 mg/dl (0.2-1.0); Blood Urea Nitrogen 11 mg/dl (6-23); Calcium 8.4 mg/dl (8.5-10.1); Carbon Dioxide 28 mmol/L (21-32); Chloride 102 mmol/L (98-107); Creatinine Clr Calc Pharmacy 72.8 ml/min; Est GFR (African American) 106.6 ml/min; Glucose 101 mg/dl (70-99(Fasting)); Potassium 3.9 mmol/L (3.5-5.1); Sodium 136 mmol/L (136-145); Total Protein 5.9 gm/dl (6.0-8.3)
[2021-10-21] MEDS ORDERED: LEVOTHYROXINE SODIUM 125 MCG TABLET PO SCH (06:30)
[2021-10-21] MEDS ORDERED: ENOXAPARIN INJ 40 MG/0.4 ML SYR SQ SCH (09:00)
[2021-10-21] MEDS ORDERED: MULTIVITAMIN TAB PO SCH (09:00)
[2021-10-21] MEDS ORDERED: PANTOprazole 40 MG TAB PO SCH (09:00)
[2021-10-21] MEDS ORDERED: ROSUVASTATIN CALCIUM 5 MG TAB PO SCH (09:00)
[2021-10-21] MEDS ORDERED: CYANOCOBALAMIN (B-12) 2,500 MCG TABLET SL SCH (09:00)
[2021-10-21] MEDS ORDERED: BUDESONIDE EC 3 MG CAP PO SCH (09:00)
[2021-10-21] MEDS ORDERED: PROMETHAZINE HCL INJ 25 MG/ML 1 ML VIAL ONE (09:25)
--- NOTE | 2021-10-21 12:41 | Hospitalist Progress Note ---
Date of Service October 21, 2021 Assessment & Plan (1) Abdominal pain: Plan: Microscopic Colitis Can not rule out gastritis/ulcer disease --CTA abd: No evidence for an aortic dissection. The central pulmonary arteries appear patent. No focal lung consolidations to suggest pneumonia. No bowel wall thickening or obstruction. Colonic diverticulosis. No evidence for acute diverticulitis. Prior appendectomy. Mild aneurysmal dilatation of the distal rig ht common iliac artery measuring 1.6 cm. There is an indeterminate 1 cm nodule within the mid mesentery. This could represent a lymph node or small bowel diverticulum. 6 month abdomen and pelvis CT follow-up with intravenous and oral contrast is recommended to ensure stability. --On PPI, Statin which could be contributing as well off note: Patient was not able to get off of PPI due to significant reflux issues --Avoid NSAIDs use --Advance diet as tolerated -Advised to follow up with GI as outpatient for possible endoscopy -Continue Budesonide -Added Pepcid Situational hypertension Bp better ECHO requested Monitor H/O Brain hemangioblastoma S/P surgery (2019) H/O Pituitary adenoma/cerebral meningioma H/O Papillary thyroid cancer S/P surgery Postsurgical hypothyroidism Continue Levothyroxine Hyperlipidemia on statin GERD On PPI Incidental finding of mesenteric nodule on CT 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 Needs repeat CT abd in 6 months Sinus Bradycardia Asymptomatic Monitor DVT Px: Lovenox SQ Code Status Full code Admission and Anticipated Discharge Date Admission Date: October 21, 2021 Subjective Patient is seen and examined at bedside Abdominal pain much improved States having nausea earlier today which currently resolved Denies any chest pain, shortness of breath, dizziness, diarrhea Family at bedside Offers no other complaints Review of Systems Review of Systems: All systems reviewed & are unremarkable except as noted in Subjective Physical Exam Physical Exam: Physical Exam: Vitals signs as noted above General Appearance:Moderately built and nourished, no apparent distress Head: normocephalic, Atraumatic Eyes: normal inspection, EOMI Neck: supple, Trachea midline Respiratory/Chest: Normal breath sounds, CTA Cardiovascular: S1, S2, No murmur Abdomen/GI:Soft, Non tender, Bowel sounds present Extremities/Musculoskeletal:normal inspection, no edema Neurologic/Psych:AAOX3, grossly no focal neurological deficits Skin: normal color, warm Results & Data Results & Data ([facility]) Vital Signs (Past 12 Hours) Vital Signs Pulse Resp BP Pulse Ox 10/21/21 06:00 62 18 123/70 98 10/21/21 04:00 53 L 16 117/74 98 10/21/21 02:08 55 L 18 137/64 98 Laboratory Results Short CBC 10/20/21 10/21/21 Range/Units 21:23 05:36 WBC 9.15 9.08 (4.8-10.8) K/uL Hgb 14.1 12.8 (12.0-16.0) g/dL Hct 42.2 39.5 (37-47) % Plt Count 296 287 (130-400) K/uL BMP 10/20/21 10/21/21 21:23 05:36 Sodium 139 136 Potassium 3.7 3.9 Chloride 103 102 Carbon Dioxide 26 28 BUN 15 11 Creatinine 0.73 0.69 Glucose 105 H 101 H Calcium 9.6 8.4 L Cardiac Enzymes 10/20/21 10/21/21 10/21/21 Range/Units 21:23 00:50 05:36 Troponin I < 0.03 < 0.03 < 0.03 (0-0.04) ng/ml Liver Function 10/20/21 10/21/21 Range/Units 21:23 05:36 Total Bilirubin 0.4 0.5 (0.2-1.0) mg/dl AST 17 14 (13-39) U/L ALT 21 17 (7-52) U/L Alkaline Phosphatase 84 70 (34-104) U/L Albumin 4.5 3.9 (3.4-5.0) gm/dl Urine 10/20/21 Range/Units 22:28 Urine Color Yellow Urine Appearance Clear (Clear) Urine pH 7.5 (4.5-7.5) Ur Specific [place] 1.029 (1.000-1.030) Urine Protein Negative (Negative) Urine Glucose (UA) Negative (Negative)
--- NOTE | 2021-10-21 14:23 | Discharge Summary ---
Date of Service October 21, 2021 Admission HPI Per Admitting Provider History obtained from patient, family, and records. Medical history significant for brain hemangioblastoma status post surgery (2019), history pituitary adenoma/cerebral meningioma as per records, papillary thyroid cancer status post surgery, postsurgical hypothyroidism, hyperlipidemia, GERD, microscopic colitis, mood disorder. 1 day history of mid abdominal pain followed by emesis symptoms. No change in bowel habits. No fever, no chills. No known sick contacts. No chest pain, no S OB. Patient and worried about possible cardiac etiology for GI symptoms given strong family of heart disease. Medical History as above Surgical History : Ex lap, breast reduction surgery, brain tumor removal, thyroidectomy, MARLEE, multiple diagnostic laparoscopies for infertility work-up Family History : Heart disease, lung cancer Personal/Social history : Non-smoker, occasional EtOH intake, CUT OFF [employer] LOG Admission Exam Per Admitting Provider Physical Exam Physical Exam: GENERAL: Slightly uncomfortable, pleasant, no respiratory distress SKIN: Normal color, warm HEENT: [place]pect[place]led, [place] palpebral conjunctivae, no ptosis, dry buccal mucosa NECK : Supple, no tenderness CHEST : CTA, no tenderness HEART : RRR, no obvious murmurs ABDOMEN: Some distention, nontender EXTREMITIES : No LE swelling/tenderness, no other conspicuous deformities noted NEUROLOGIC : Coherent, no facial asymmetry, no other gross focality Principal Diagnosis Microscopic Colitis Mesenteric Nodule Discharge Data Allergies Allergy/AdvReac Type Severity Reaction Status Date / Time cefoxitin [From Mefoxin] Allergy Rash Unverified 10/21/21 00:08 Sulfa (Sulfonamide Allergy Verified 10/21/21 00:07 Antibiotics) Consultations 10/20/21 23:15 ED Decision to Admit Stat Ordered Studies 10/20/21 21:27 CT angio abdomen pelvis w con Stat CT angio chest dissec wo/w con Stat Hospital Course (1) Abdominal pain: Microscopic Colitis Can not rule out gastritis/ulcer disease --CTA abd: No evidence for an aortic dissection. The central pulmonary arteries appear patent. No focal lung consolidations to suggest pneumonia. No bowel wall thickening or obstruction. Colonic diverticulosis. No evidence for acute diverticulitis. Prior appendectomy. 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 There is an indeterminate 1 cm nodule within the mid mesentery. This could represent a lymph node or small bowel diverticulum. [address] abdomen and pelvis CT follow-up with intravenous and oral contrast is recommended to ensure stability. --On PPI, Statin which could be contributing as well off note: Patient was not able to get off of PPI due to significant reflux issues --Avoid NSAIDs use --Advance diet as tolerated -Advised to follow up with GI as outpatient for possible endoscopy -Continue Budesonide -Added Pepcid Situational hypertension Bp better ECHO requested Monitor H/O Brain hemangioblastoma S/P surgery (2019) H/O Pituitary adenoma/cerebral meningioma H/O Papillary thyroid cancer S/P surgery Postsurgical hypothyroidism Continue Levothyroxine Hyperlipidemia on statin GERD On PPI Incidental finding of mesenteric nodule on CT 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 Needs repeat CT abd in 6 months Sinus Bradycardia Asymptomatic Monitor DVT Px: Lovenox SQ Code Status Full code Total Time Total Time Spent Total Time Spent (In Minutes): 40 minutes Discharge Plan Discharge Items Patient Disposition: Home - Self-Care Reason For Visit: ABD PAIN, HTN URG Discharge Diagnosis: Microscopic Colitis Mesenteric Nodule Activity: Per Instructions section Exercise/Sports: Gradually increase as tolerated Non-emergency contact: Primary Care Provider and Manager Core Call non-emergency contact if: you have any medication questions, your symptoms worsen, your pain is concerning for you and you have a fever Follow-up/Referrals: Shawn Puente MD [Primary Care Provider] - Diet: Heart Healthy Addtl Attending Provider Instructions: Follow-up with your primary care physician in 1 week Follow-up with your prepared foods service team member for possible endoscopy as advised in 2 weeks --- Your noted to have a mesenteric nodule and mild aneurysmal dilatation of the distal right common iliac artery on CT abdomen. Recommend to get a repeat CT abdomen pelvis in 6 months for further evaluation. ---Your ECHO is suggestive of diastolic dysfunction. Consider following up with your systems analyst developer. Do not take group of medications belonging to NSAIDs group -can worsen Micros copic Colitis. List Of these medications includes but not limited to: Diclofenac Ibuprofen, Motrin, Advil Toradol,ketorolac Naproxen, Aleve, Naprosyn Seek immediate medical attention if your symptoms reoccur or worsen Please take all medications as instructed on discharge list below. Please call if you have any questions or problems. You can reach a [facility] hospitalist on duty at [facility] 24 hours a day by calling [phone] Pending Studies at Discharge: No Stand-Alone Forms: My [facility], Smoking Cessation Medications and DC Order Prescriptions: New famotidine 20 mg Tablet 20 mg PO HS Qty: 30 RF: 0 Continued trazodone 50 mg tablet 50 mg PO HS RF: 0 levothyroxine 125 mcg Tablet 125 mcg PO DAILY RF: 0 rabeprazole [AcipHex] 20 mg Tablet,Delayed Release (Dr/Ec) 20 mg PO DAILY RF: 0 melatonin 10 mg Tablet 10 mg PO HS PRN (Reason: Insomnia) RF: 0 rosuvastatin [Crestor] 5 mg Tablet 5 mg PO DAILY RF: 0 acetaminophen [Tylenol Arthritis] 650 mg Tablet Extended Release 1,300 mg PO Q12H PRN (Reason: Pain) RF: 0 multivitamin [Multiple Vitamin] Tablet 1 tab PO DAILY RF: 0 Calcium 600 + D(3) 600 mg-5 mcg (200 unit) Capsule 1 cap PO QAM RF: 0 PreserVision Lutein 226 mg-200 unit -5 mg-0.8 mg Capsule 1 cap PO BID RF: 0 biotin 5 mg Tablet 0 mg PO DAILY RF: 0 cyanocobalamin (vitamin B-12) 5,000 mcg Capsule 5,000 mcg PO DAILY RF: 0 fluticasone propionate 50 mcg/actuation [place],Suspension 2 spray INTRANASAL DAILY PRN (Reason: Congestion) RF: 0 budesonide 3 mg Capsule,Delayed,Extend.Release 9 mg PO DAILY RF: 0 Discharge Orders: Discharge Order (Routine); Ordered 10/21/21 Ordered By: Colton Marshall Admission Data Admit Date/Time: 10/21/21 01:33 Attending Provider: Colton Marshall Admit Provider: Ander Kinsey Primary Care Provider: Shawn Puente Other Providers: Ander Kinsey
[2021-10-21] MEDS ORDERED: FAMOTIDINE 20 MG TAB PO SCH (21:00)
[2021-10-21] MEDS ORDERED: traZODone HCL 50 MG TAB PO SCH (21:00)
--- NOTE | 2021-10-22 22:08 | Electrocardiogram Report ---
Test Reason : Blood Pressure : / mmHG Vent. Rate : 048 BPM Atrial Rate : 048 BPM P-R Int : 152 ms QRS Dur : 086 ms QT Int : 480 ms P-R-T Axes : 066 058 034 degrees QTc Int : 428 ms Sinus bradycardia with sinus arrhythmia Otherwise normal ECG No previous ECGs available Confirmed by Blake Rae ([id number]) on 10/22/2021 10:08:11 PM Referred By: REFERRED SELF Confirmed By:Blake Rae
== END 2021-10-21 15:30 | disposition home or self-care (01) ==
LOC: ED 20:22 → EDINP 20:22